=== PATIENT | female | born 1965 | race Caucasian/White ===

== ENCOUNTER → 2016-09-29 | Outpatient (CLI) | payer BC, OTHER ==
--- NOTE | 2016-10-03 08:51 | MM ---
Reason for exam: screening (asymptomatic). Baseline mammogram. History: Patient is postmenopausal and is nulliparous. Physical Findings: Nurse did not find any significant physical abnormalities on exam. MG Screening Mammo w CAD Bilateral CC and MLO view(s) were taken. The breast tissue is heterogeneously dense. This may lower the sensitivity of mammography. Finding: There are typically benign coarse calcifications in the lower inner quadrant of the right breast. There is no discrete abnormality. These results were verbally communicated with the patient and result sheet given to the patient on 09/29/16. ASSESSMENT: Benign, BI-RAD 2 RECOMMENDATION: Routine screening mammogram of both breasts in 1 year.
== END | disposition home or self-care (01) ==
LOC: RADMAMWWP 12:48
PROVIDERS: ATTEND Family Medicine
DX: Z12.31 Encounter for screening mammogram for malignant neoplasm of breast (principal)

== ENCOUNTER → 2018-10-03 | Outpatient (CLI) | payer OTHER ==
--- NOTE | 2018-10-04 12:19 | MM ---
Reason for exam: screening (asymptomatic). Last mammogram was performed 2 years ago. History: Patient is postmenopausal and is nulliparous. Physical Findings: A clinical breast exam by your physician is recommended on an annual basis and results should be correlated with mammographic findings. MG Screening Mammo w CAD Bilateral CC and MLO view(s) were taken. Prior study comparison: September 29, 2016, bilateral MG screening mammo w CAD. The breast tissue is heterogeneously dense. This may lower the sensitivity of mammography. There is no discrete abnormality. ASSESSMENT: Negative, BI-RAD 1 RECOMMENDATION: Routine screening mammogram of both breasts in 1 year.
== END | disposition home or self-care (01) ==
LOC: RADMAMWWP 10:51
PROVIDERS: ATTEND Family Medicine
DX: Z12.31 Encounter for screening mammogram for malignant neoplasm of breast (principal)
CPT/HCPCS: 77067

== ENCOUNTER 2018-11-21 06:41 | Day surgery (SDC) | payer OTHER ==
[2018-11-19 15:51] VITALS: BMI 26.4
[~2018-11-21 06:41] MED LIST: LACTATED RINGERS 1,000 ML IV SCH
[2018-11-21 07:14] VITALS: TEMP 98.1
[2018-11-21] MEDS ORDERED: LIDOCAINE 1% INJ 10MG/ML (20 ML MDV) ONE (07:30)
[2018-11-21] MEDS ORDERED: PROPOFOL 10 MG/ML 20 ML VIAL IV ONE (07:30)
--- NOTE | 2018-11-21 07:37 | P.GSHP ---
History of Present Illness H&P Date: 11/21/18 CHIEF COMPLAINT: Colon screen HISTORY OF PRESENT ILLNESS: The patient is a 53-year-old female who presents for colon screen. Lower endoscopy was offered for further evaluation and management. PAST MEDICAL HISTORY: Please see list. PAST SURGICAL HISTORY: Please see list. MEDICATIONS: Please see list. ALLERGIES: Please see list. SOCIAL HISTORY: No illicit drug use FAMILY HISTORY: No reports of Crohn disease or ulcerative colitis. REVIEW OF ORGAN SYSTEMS: CONSTITUTIONAL: No reports of fevers or chills. PHYSICAL EXAM: VITAL SIGNS: Stable GENERAL: Well-developed pleasant in no acute distress. HEENT: No scleral icterus. Extraocular movements grossly intact. Moist buccal mucosa. NECK: Supple without lymphadenopathy. CHEST: Unlabored respirations. Equal bilateral excursions. CARDIOVASCULAR: Regular rate and rhythm. Distal 2+ pulses. ABDOMEN: Soft, nontender, nondistended. MUSCULOSKELETAL: No clubbing, cyanosis, or edema. ASSESSMENT: 1. Colon screen. PLAN: 1. Recommend proceeding with a lower endoscopy Past Medical History Past Medical History: Hyperlipidemia History of Any Multi-Drug Resistant Organisms: None Reported Past Surgical History: No Surgical Hx Reported Additional Past Surgical History / Comment(s): tissure removed from shoulder Past Anesthesia/Blood Transfusion Reactions: No Reported Reaction Smoking Status: Former smoker - Past Family History Mother Family Medical History: No Reported History Medications and Allergies Home Medications Medication Instructions Recorded Confirmed Type Atorvastatin [Lipitor] 20 mg PO DAILY 11/19/18 11/21/18 History Phentermine HCl [Adipex-P] 37.5 mg PO DAILY 11/19/18 11/21/18 History Sinus Congestion Tablet 1 tab PO DAILY PRN 11/19/18 History Allergies Allergy/AdvReac Type Severity Reaction Status Date / Time No Known Allergies Allergy Verified 11/21/18 07:10 Surgical - Exam Vital Signs Temp Pulse Resp BP Pulse Ox 98.1 F 77 16 130/78 98 11/21/18 07:13 11/21/18 07:13 11/21/18 07:13 11/21/18 07:13 11/21/18 07:13
--- NOTE | 2018-11-21 07:51 | P.PCN ---
Date of Procedure: 11/21/18 Description of Procedure: PREOPERATIVE DIAGNOSIS: Colonoscopy screening, first POSTOPERATIVE DIAGNOSIS: Colonoscopy screening. OPERATION: Colonoscopy to the ileocecal valve and appendiceal orifice. SURGEON: Sandy Hernandez MD. ANESTHESIA: MAC. INDICATIONS: The patient is a 53-year-old female who presents for her first colonoscopy screening. Benefits and risks were described and informed consent was obtained. DESCRIPTION OF PROCEDURE: The patient had undergone Suprep. She had been brought into the operating room and laid in the left lateral decubitus position. After adequate intravenous sedation, the rectum was examined with 2% lidocaine jelly. No external hemorrhoids were encountered. The rectal tone was within normal limits. No lesions were palpated in the rectal vault. An Olympus colonoscope was advanced until the ileocecal valve and appendiceal orifice were clearly viewed. The prep was excellent with clear visualization of the mucosal folds. The scope was removed with visualization of each mucosal fold. No scattered diverticulosis was encountered. No colonic polyps were found. No evidence of focal colitis was found. Retroflexion of the scope demonstrated no internal hemorrhoids. The colon was desufflated. The patient had tolerated the procedure well. Withdrawal time was over 6 minutes. FINDINGS: Aronchick preparation quality scale 1 (1-5) No internal hemorrhoids No external prolapsed hemorrhoids. No arteriovenous malformations. No adenomatous polyps. No focal colitis. RECOMMENDATIONS: Lower endoscopy in 10 2028 Plan - Discharge Summary Discharge Rx Participant: No New Discharge Prescriptions: No Action Phentermine HCl [Adipex-P] 37.5 mg PO DAILY Atorvastatin [Lipitor] 20 mg PO DAILY Sinus Congestion Tablet 1 tab PO DAILY PRN PRN Reason: Congestion Discharge Medication List Atorvastatin [Lipitor] 20 mg PO DAILY 11/19/18 [History] Phentermine HCl [Adipex-P] 37.5 mg PO DAILY 11/19/18 [History] Sinus Congestion Tablet 1 tab PO DAILY PRN 11/19/18 [History] Follow up Appointment(s)/Referral(s): Snady Hernandez MD [STAFF PHYSICIAN] - As Needed Patient Instructions/Handouts: *[facility] - (Anesthesia) Endoscopy Discharge Instructions, Colonoscopy (DC) Activity/Diet/Wound Care/Special Instructions: Follow up in 10 years2028 Discharge Disposition: HOME SELF-CARE
[2018-11-21 08:12] VITALS: BP 117/75; PULSE 79; RESP 18
== END 2018-11-21 08:20 | disposition home or self-care (01) ==
LOC: ORWHC2ENDO 06:41
PROVIDERS: ATTEND Surgery Plastic and Reconstructive Surgery
DX: Z12.11 Encounter for screening for malignant neoplasm of colon (principal); E78.5 Hyperlipidemia, unspecified; I10 Essential (primary) hypertension; Z87.891 Personal history of nicotine dependence; Z79.899 Other long term (current) drug therapy

== ENCOUNTER → 2020-12-07 | Outpatient (CLI) | payer BC ==
--- NOTE | 2020-12-09 11:47 | MM ---
Reason for exam: screening (asymptomatic). Last mammogram was performed 2 years and 2 months ago. History: Patient is postmenopausal and is nulliparous. Physical Findings: A clinical breast exam by your physician is recommended on an annual basis and results should be correlated with mammographic findings. MG Screening Mammo w CAD Bilateral CC and MLO view(s) were taken. Prior study comparison: October 03, 2018, bilateral MG screening mammo w CAD. September 29, 2016, bilateral MG screening mammo w CAD. The breast tissue is heterogeneously dense. This may lower the sensitivity of mammography. There is chronic nodularity in the left MLO view centrally. ASSESSMENT: Benign, BI-RAD 2 RECOMMENDATION: Routine screening mammogram of both breasts in 1 year. Patient should continue monthly self breast exams. A negative report should not preclude additional follow up of suspicious palpable abnormalities.
== END | disposition home or self-care (01) ==
LOC: RADMAMWWP 14:26
PROVIDERS: ATTEND Family Medicine
DX: Z12.39 Encounter for other screening for malignant neoplasm of breast (principal)
CPT/HCPCS: 77067